=== PATIENT | female | born 1940 | race Caucasian/White ===

== ENCOUNTER → 2017-02-13 | Outpatient (CLI) | payer MEDICARE, BC ==
--- NOTE | 2017-02-13 15:59 | RAD ---
3 views left knee 02/13/2017 2:00 AM Indication: LEFT KNEE PAIN AND RIGHT HIP PAIN Comparison: None Findings: No evidence of acute fracture or dislocation is seen. There is severe tricompartmental degenerative change involving left knee. There is obliteration of the medial compartment joint space with subchondral sclerosis and likely small subchondral cyst formation. Tricompartmental osteophytosis is noted. Large osteophytes involving the medial femoral condyle are seen posteriorly. A definitive joint effusion is not identified. Atherosclerotic vascular calcification noted. Impression: Severe degenerative changes in the left knee as described without evidence of acute abnormality
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
== END | disposition home or self-care (01) ==
LOC: DXRADRC 12:20
PROVIDERS: ATTEND Nurse Practitioner Family
DX: M17.12 Unilateral primary osteoarthritis, left knee (principal); M16.11 Unilateral primary osteoarthritis, right hip; M25.462 Effusion, left knee; M25.851 Other specified joint disorders, right hip; M47.896 Other spondylosis, lumbar region
CPT/HCPCS: 73501; 73562

== ENCOUNTER 2018-02-05 17:25 | Emergency (ER) | payer MEDICARE, BC ==
[~2018-02-05] VITALS: Ht 162.6 cm; Wt 85.7 kg
--- NOTE | 2018-02-05 17:59 | ED.ADGEN ---
Past History Past Medical History: Arthritis, GI Bleed, Other Adult General Chief Complaint Chief Complaint ".. I just had a blood poop... and now I feel like another one coming on..." " It was maroon in color..." HPI HPI Patient is a 77 year old female retired [employer] from [employer], who presents with above hx and complaints of large maroon stools. Pt. shortly after presentation produce a large bloody stool. Pt. does take Aleve for Rt. hip pain, that is to under go hip replacement in the next couple weeks. Pt. denies other anti-coagulants. Pt. did eat tacos for lunch. Pt. had prior colon scopic which had fever diverticular findings other jones reportedly normal. Pt. had food, trauma, ill contacts, travel or immunosuppression. Does have degenerative joint disease with has resulted in need for right hip replacement. Patient has not had previous GI bleeds. Review of Systems Review of Systems Constitutional: Denies fever or chills [] Eyes: Denies change in visual acuity, redness, or eye pain [] HENT: Denies nasal congestion or sore throat [] Respiratory: Denies cough or shortness of breath [] Cardiovascular: No additional information not addressed in HPI [] GI: Denies abdominal pain, nausea, vomiting,. Complaints of bloody stools or diarrhea [] : Denies dysuria or hematuria [] Musculoskeletal: Denies back pain or joint pain [] Integument: Denies rash or skin lesions [] Neurologic: Denies headache, focal weakness or sensory changes [] Endocrine: Denies polyuria or polydipsia [] All other systems were reviewed and found to be within normal limits, except as documented in this note. Family History Family History Noncontributory Current Medications Current Medications Current Medications Medications (Trade) Dose Ordered Sig/Jordana Start Time Stop Time Status Last Admin Dose Admin Ondansetron HCl (Zofran) 4 mg 1X ONCE 02/05/18 18:30 02/05/18 19:33 DC 02/05/18 19:27 4 MG Pantoprazole Sodium (Protonix Vial) 40 mg 1X ONCE 02/05/18 18:30 02/05/18 19:33 DC 02/05/18 19:26 40 MG Sodium Chloride 1,000 ml @ 1,000 mls/hr Q1H 02/05/18 18:24 10/5/18 19:33 DC 02/05/18 19:25 1,000 MLS/HR Allergies Allergies Allergies Coded Allergies Type Severity Reaction Last Updated Verified ibuprofen Allergy Intermediate 02/05/18 Yes cephalexin Adverse Reaction Intermediate 02/05/18 Yes No known drug allergies Physical Exam Physical Exam Constitutional: Moderately acute distress, non-toxic appearance. [] HENT: Normocephalic, atraumatic, bilateral external ears normal, oropharynx moist, no oral exudates, nose normal. [] Eyes: PERRLA, EOMI, conjunctiva normal, no discharge. [] Neck: Normal range of motion, no tenderness, supple, no stridor. [] Cardiovascular: Tachycardia Heart rate regular rhythm, no murmur [] Lungs & Thorax: Bilateral breath sounds clear to auscultation [] Abdomen: Bowel sounds hyperactive, soft, no tenderness, no masses, no pulsatile masses. [Obese. Bright red blood per stool. Old surgery scars Skin: Warm, dry, no erythema, no rash. [] Back: No tenderness, no CVA tenderness. [] Extremities: No tenderness, no cyanosis, no clubbing, ROM intact, no edema. [] Arthritic changes Neurologic: Alert and oriented X 3, normal motor function, normal sensory function, no focal deficits noted. [] Psychologic: Affect anxious, judgement normal, mood normal. [] Current Patient Data Vital Signs Vital Signs Date Time Temp Pulse Resp B/P (MAP) Pulse Ox O2 Delivery O2 Flow Rate FiO2 02/05/18 19:59 80 22 151/66 (94) 94 Room Air 02/05/18 17:50 97.9 Lab Results Laboratory Tests Test 02/05/18 19:05 White Blood Count 8.3 x10^3/uL (4.0-11.0) Red Blood Count 4.20 x10^6/uL (3.50-5.40) Hemoglobin 14.2 g/dL (12.0-15.5) Hematocrit 41.8 % (36.0-47.0) Mean Corpuscular Volume 100 fL (79-100) Mean Corpuscular Hemoglobin 34 pg (25-35) Mean Corpuscular Hemoglobin Concent 34 g/dL (31-37) Red Cell Distribution Width 13.3 % (11.5-14.5) Platelet Count 268 x10^3/uL (140-400) Neutrophils (%) (Auto) 75 % (31-73) H Lymphocytes (%) (Auto) 15 % (24-48) L Monocytes (%) (Auto) 9 % (0-9) Eosinophils (%) (Auto) 1 % (0-3) Basophils (%) (Auto) 1 % (0-3) Neutrophils # (Auto) 6.2 x10^3uL (1.8-7.7) Lymphocytes # (Auto) 1.3 x10^3/uL (1.0-4.8) Monocytes # (Auto) 0.7 x10^3/uL (0.0-1.1) Eosinophils # (Auto) 0.1 x10^3/uL (0.0-0.7) Basophils # (Auto) 0.1 x10^3/uL (0.0-0.2) Prothrombin Time 9.9 SEC (9.4-11.4) Prothrombin Time INR 1.0 (0.9-1.1) PTT 25 SEC (23-33) Sodium Level 137 mmol/L (136-145) Potassium Level 4.1 mmol/L (3.5-5.1) Chloride Level 100 mmol/L (98-107) Carbon Dioxide Level 33 mmol/L (21-32) H Anion Gap 4 (6-14) L Blood Urea Nitrogen 23 mg/dL (7-20) H Creatinine 0.7 mg/dL (0.6-1.0) Estimated GFR (Cockcroft-Gault) 81.4 Glucose Level 133 mg/dL (70-99) H Calcium Level 9.0 mg/dL (8.5-10.1) Total Bilirubin 0.2 mg/dL (0.2-1.0) Direct Bilirubin 0.1 mg/dL (0.0-0.2) Aspartate Amino Transferase (AST) 14 U/L (15-37) L Alanine Aminotransferase (ALT) 17 U/L (14-59) Alkaline Phosphatase 53 U/L (46-116) Creatine Kinase 27 U/L (26-192) Troponin I Quantitative < 0.017 ng/mL (0-0.055) Total Protein 6.9 g/dL (6.4-8.2) Albumin 3.1 g/dL (3.4-5.0) L Amylase Level 30 U/L (25-115) Lipase 115 U/L (73-393) EKG EKG My interpretation EKG shows a sinus rhythm at 80 bpm. There is some contour changes anterior lateral leads. No findings acute STEMI with contralateral changes.[] Radiology/Procedures Radiology/Procedures My interpretation of acute abdomen film shows some striations right lung field. No free air under the diaphragm. Clips in right upper abdomen. Nonspecific bowel gas pattern.[] Course & Med Decision Making Course & Med Decision Making Pertinent Labs and Imaging studies reviewed. (See chart for details) Discussed presentation, testing and treatment plan with Dr. Cohen- will accept pt at [facility]. Labs still pending 1919. [] Final Impression Final Impression 1. GI Bleed[] 2. Hx. DJD 3. Elevated Glucose- 133 Dragon Disclaimer Dragon Disclaimer This electronic medical record was generated, in whole or in part, using a voice recognition dictation system. AUSTIN SMITH MD Feb 05, 2018 17:59
[2018-02-05] MEDS ORDERED: IV NORMAL SALINE 1,000ML 1,000 ML IV SCH (18:24)
[2018-02-05] MEDS ORDERED: ONDANSETRON PF 4 MG/2 ML VIAL. IV ONE (18:30)
[2018-02-05] MEDS ORDERED: PANTOPRAZOLE IV 40 MG VIAL. IVP ONE (18:30)
[2018-02-05 19:21] LABS: BASO # 0.1 x10^3/uL (0.0-0.2); BASO % 1 % (0-3); EOS # 0.1 x10^3/uL (0.0-0.7); EOS % 1 % (0-3); HEMATOCRIT 41.8 % (36.0-47.0); HEMOGLOBIN 14.2 g/dL (12.0-15.5); LYMPH # 1.3 x10^3/uL (1.0-4.8); LYMPH % 15 % (24-48); MEAN CORPUSCULAR HEMOGLOBIN 34 pg (25-35); MEAN CORPUSCULAR HGB CONC 34 g/dL (31-37); MEAN CORPUSCULAR VOLUME 100 fL (79-100); MONO # 0.7 x10^3/uL (0.0-1.1); MONO % 9 % (0-9); NEUT # 6.2 x10^3uL (1.8-7.7); NEUT % 75 % (31-73); PLATELET COUNT 268 x10^3/uL (140-400); RED CELL DISTRIBUTION WIDTH 13.3 % (11.5-14.5); WHITE BLOOD COUNT 8.3 x10^3/uL (4.0-11.0)
[2018-02-05 19:34] LABS: ALBUMIN 3.1 g/dL (3.4-5.0); CREATININE 0.7 mg/dL (0.6-1.0); DIRECT BILIRUBIN 0.1 mg/dL (0.0-0.2); GFR 81.4; POTASSIUM 4.1 mmol/L (3.5-5.1); TOTAL BILIRUBIN 0.2 mg/dL (0.2-1.0); TOTAL PROTEIN 6.9 g/dL (6.4-8.2)
[2018-02-05 19:59] VITALS: BP 151/66
--- NOTE | 2018-02-05 20:17 | EKG ---
[address] [address] Test Date: 2018-02-05 Test Time: 19:10:09 Pat Name: SUHAIL HEAD Department: Room: Gender: F [employer] F[employer]: : 1940 Requested By: AUSTIN SMITH Order Number: [id number] Reading MD: Christiano Hayward MD Measurements Intervals [place] Rate: 80 P: 67 ND: 138 QRS: 51 QRSD: 74 T: 52 QT: 372 QTc: 433 Interpretive Statements SINUS RHYTHM Electronically Signed On 02-08-2018 11:11:23 CDT by Christiano Hayward MD
--- NOTE | 2018-02-05 20:51 | RAD ---
Acute abdominal series to include a PA chest radiograph 02/05/2018 Clinical History: Rectal bleeding. A PA digital radiograph of the chest was obtained. Supine and erect AP digital radiographs of the abdomen/pelvis were obtained. No previous studies are available for comparison. The cardiac silhouette is normal in size. The thoracic aorta is minimally tortuous. Atherosclerotic calcification of the thoracic aorta is seen. No acute pulmonary infiltrate is seen. No pleural effusion or pneumothorax is noted. Surgical clips are seen within the right upper quadrant of the abdomen consistent with a cholecystectomy. The abdominal bowel gas pattern is nonobstructive. There is no evidence of free air. No radiopaque calculus is seen. Degenerative changes are seen involving the thoracic spine along with the lumbar spine and both hips, right greater than left. IMPRESSION: Nonobstructive bowel gas pattern. Electronically signed by: Bal Kang MD (02/05/2018 8:47 PM) [facility]
== END 2018-02-05 20:00 | disposition short-term general hospital (02) ==
LOC: ER 17:25
DX: K92.2 Gastrointestinal hemorrhage, unspecified (principal); M16.11 Unilateral primary osteoarthritis, right hip; R73.9 Hyperglycemia, unspecified; M19.90 Unspecified osteoarthritis, unspecified site; Z88.1 Allergy status to other antibiotic agents; Z88.6 Allergy status to analgesic agent
CPT/HCPCS: 36415; 74022; 80048; 80076; 82150; 82550; 83690; 84484; 85025; 85610; 85730; 93005; 96361; 96374; 96375; 99285; C9113; J2405; J7030